=== PATIENT | male | born 1980 | race African-American/Black ===

== ENCOUNTER 2021-05-16 08:47 | Emergency (ER) | payer MEDICAID ==
[~2021-05-16] VITALS: Ht 188 cm; Wt 92.0 kg
[2021-05-16 08:50] VITALS: BP 137/86
[2021-05-16] MEDS ORDERED: LIDOCAINE HCL/PF 1% 10 MG/ML 5ML VIAL INFIL ONE (09:15)
[2021-05-16] MEDS ORDERED: SULF1TAB48 PO (09:45)
== END 2021-05-16 10:06 | disposition home or self-care (01) ==
LOC: ER 08:47
DX: L03.011 Cellulitis of right finger (principal)
CPT/HCPCS: 10060; 99283; J3490; Z7610